=== PATIENT | female | born 1935 | race Caucasian/White ===

== ENCOUNTER → 2016-06-03 | Outpatient (REF) | payer OTHER ==
[~2016-06-03] MED LIST: AMLO5TAB2 PO; BENA25CA2 PO; CALALOT TOP; CALC600T10 PO; FERR325T PO; HYDR25OI TOP; LASI20TA PO; LOSA100T37 PO; NEUR600T PO; OMEP40CA2 PO; OXYC1TAB16 PO; SYNT50TA PO; VITMTA PO
[2016-06-03 12:08] LABS: MEAN CORPUSCULAR HEMOGLOBIN 26.4 pg (27.0-33.0); MEAN CORPUSCULAR HGB CONC 31.1 g/dl (32.0-36.5); MEAN CORPUSCULAR VOLUME 85.1 fl (80.0-96.0); RED CELL DISTRIBUTION WIDTH 20.7 % (11.5-14.5); WHITE BLOOD COUNT 6.5 K/mm3 (4.0-10.0)
[2016-06-03 13:09] LABS: ALBUMIN 3.6 GM/DL (3.2-5.2); ALBUMIN/GLOBULIN RATIO 1.09 (1.00-1.93); BILIRUBIN,TOTAL 0.6 MG/DL (0.2-1.0); CALCIUM LEVEL 8.7 MG/DL (8.8-10.2); CREATININE FOR GFR 1.54 MG/DL (0.55-1.02); GLOMERULAR FILTRATION RATE 34.6 (>39); POTASSIUM SERUM 4.6 MEQ/L (3.5-5.1); TOTAL PROTEIN 6.9 GM/DL (6.4-8.2)
== END ==
LOC: M SFHCPLAZ 08:27
PROVIDERS: ATTEND Internal Medicine
DX: R22.2 Localized swelling, mass and lump, trunk (principal); I10 Essential (primary) hypertension; E03.9 Hypothyroidism, unspecified

== ENCOUNTER → 2016-07-14 | Outpatient (CLI) | payer OTHER ==
[~2016-07-14] VITALS: Ht 154.9 cm; Wt 81.2 kg
[~2016-07-14] MED LIST changes: +CARV6.25 PO; +FERR325T3 PO; +LIDOCAINE 2% INJ 100 MG/5 ML SDV (FOR ANES.) As Ordered ONE; +NS 1,000 ML IV SCH; +PROPOFOL 200 MG/20 ML VIAL As Ordered ONE; +SPIR25TA2 PO
--- NOTE | 2016-07-14 14:23 | ROOR ---
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 Procedure: Pre-Anesthesia Assessment: - The heart rate, respiratory rate, oxygen saturations, blood pressure, adequacy of pulmonary ventilation, and response to care were monitored throughout the procedure. The Endoscope was introduced through the mouth, and advanced to the second part of duodenum. The upper GI endoscopy was accomplished without difficulty. The patient tolerated the procedure well. Findings: The Z-line was regular and was found 29 cm from the incisors. The examined esophagus was normal. A large hiatal hernia was present. The entire examined stomach was normal. The examined duodenum was normal. Impression: - Z-line regular, 29 cm from the incisors. - Normal esophagus. - Moderate/Large hiatal hernia. (I do not see any camerons erosions on this exam) - Normal stomach. - Normal examined duodenum. - No specimens collected. Recommendation: - Continue present medications. - Use Prilosec (omeprazole) 40 mg daily indefinitely. - Observe patient's clinical course. Fidel Mendes MD Fidel MENDES MD 07/14/2016 2:23:24 PM This report has been signed electronically. Number of Addenda: 0 Note Initiated On: 07/14/2016 2:10 PM Estimated Blood Loss: Estimated blood loss: none.
[2016-07-14 14:50] VITALS: BP 163/83
== END ==
LOC: M OPP 12:57
PROVIDERS: ATTEND Internal Medicine Gastroenterology
DX: D50.9 Iron deficiency anemia, unspecified (principal); K44.9 Diaphragmatic hernia without obstruction or gangrene; I10 Essential (primary) hypertension; M81.0 Age-related osteoporosis without current pathological fracture; E03.9 Hypothyroidism, unspecified; Z97.2 Presence of dental prosthetic device (complete) (partial); Z79.899 Other long term (current) drug therapy; Z79.891 Long term (current) use of opiate analgesic

== ENCOUNTER → 2017-06-03 | Outpatient (REF) | payer OTHER ==
[2017-06-03 12:32] LABS: ALBUMIN 3.6 GM/DL (3.2-5.2); ALBUMIN/GLOBULIN RATIO 1.06 (1.00-1.93); ALKALINE PHOSPHATASE 83 U/L (45-117); ALT/SGPT 15 U/L (12-78); ANION GAP 4 MEQ/L (8-16); AST/SGOT 13 U/L (7-37); BILIRUBIN,TOTAL 0.7 MG/DL (0.2-1.0); BLOOD UREA NITROGEN 21 MG/DL (7-18); CALCIUM LEVEL 8.9 MG/DL (8.8-10.2); CARBON DIOXIDE LEVEL 34 MEQ/L (21-32); CHLORIDE LEVEL 104 MEQ/L (98-107); CHOLESTEROL LEVEL 266 MG/DL (<200); CREATININE FOR GFR 1.54 MG/DL (0.55-1.02); GLOMERULAR FILTRATION RATE 34.5 (>32); GLUCOSE, FASTING 94 MG/DL (83-110); HDL CHOLESTEROL 93 MG/DL (>40); LDL CHOLESTEROL 150.6 MG/DL (<100); NON-HDL-C 173 MG/DL; POTASSIUM SERUM 4.2 MEQ/L (3.5-5.1); SODIUM LEVEL 142 MEQ/L (136-145); TRIGLYCERIDES LEVEL 112 MG/DL (<150)
== END ==
LOC: M SFHCPLAZ 08:48
DX: I10 Essential (primary) hypertension (principal); E78.00 Pure hypercholesterolemia, unspecified; E03.9 Hypothyroidism, unspecified
CPT/HCPCS: 84443

== ENCOUNTER → 2017-12-31 | Outpatient (REF) | payer OTHER ==
[2017-12-31 13:02] LABS: CHOLESTEROL LEVEL 275 MG/DL (<200); HDL CHOLESTEROL 87 MG/DL (>40); LDL CHOLESTEROL 166.8 MG/DL (<100); NON-HDL-C 188 MG/DL; TRIGLYCERIDES LEVEL 106 MG/DL (<150)
== END ==
LOC: M SFHCPLAZ 09:18
DX: E78.00 Pure hypercholesterolemia, unspecified (principal)
CPT/HCPCS: 80061

== ENCOUNTER 2018-02-18 08:27 | Day surgery (SDC) | payer OTHER ==
[2018-02-18] MEDS: LR 1,000 ML IV (09:35)
[2018-02-18] MEDS ORDERED: MIDAZOLAM INJ 2 MG/2 ML VIAL (J2250) As Ordered (10:30)
[2018-02-18] MEDS ORDERED: PROPOFOL 200 MG/20 ML VIAL As Ordered (10:30)
[2018-02-18] MEDS ORDERED: fentaNYL 250 MCG/5 ML INJECTION (J3010) As Ordered (10:30)
[2018-02-18] MEDS ORDERED: LIDOCAINE 2% INJ 100 MG/5 ML SDV (FOR ANES.) As Ordered (10:30)
[2018-02-18] MEDS ORDERED: ROCURONIUM BROMIDE 50 MG/5 ML VIAL As Ordered (10:30)
[2018-02-18] MEDS ORDERED: LIDOCAINE W/EPINEPHRINE 1% 20ML VIAL As Ordered (10:55)
[2018-02-18] MEDS ORDERED: dexameTHASONE 4 MG/ML 1ML VIAL (J1100) As Ordered (11:30)
[2018-02-18] MEDS ORDERED: ePHEDrine SULFATE 25 MG/5 ML(5MG/ML) SYRINGE As Ordered ×2 (11:32→11:45)
[2018-02-18] MEDS ORDERED: ONDANSETRON 4MG/2ML VIAL (J2405) As Ordered (11:41)
[2018-02-18] MEDS ORDERED: GLYCOPYRROLATE INJ 0.2 MG/ML 2 ML VIAL As Ordered (11:42)
[2018-02-18] MEDS ORDERED: PHENYLephrine HCL 500 MCG/5 ML (100MCG/ML) SYRINGE (J2370) As Ordered (11:46)
[2018-02-18] MEDS ORDERED: BACITRACIN OINT 30GM As Ordered (11:47)
[2018-02-18] MEDS ORDERED: LR 1,000 ML IV ×2 (12:15→12:45)
[2018-02-18] MEDS ORDERED: METOCLOPRAMIDE INJ 10MG/2ML VIAL (J2765) IV (12:15)
[2018-02-18] MEDS ORDERED: ONDANSETRON 4MG/2ML VIAL (J2405) IV (12:15)
[2018-02-18] MEDS ORDERED: fentaNYL 100 MCG/2 ML INJECTION (J3010) IV (12:15)
[2018-02-18] MEDS ORDERED: PERCOCET 5MG/325MG TAB PO (12:15)
== END 2018-02-18 13:18 | disposition home or self-care (01) ==
LOC: M SDC 08:27
DX: C44.311 Basal cell carcinoma of skin of nose (principal); I12.9 Hypertensive chronic kidney disease with stage 1 through stage 4 chronic kidney disease, or unspecified chronic kidney disease; E03.9 Hypothyroidism, unspecified; K44.9 Diaphragmatic hernia without obstruction or gangrene; D64.9 Anemia, unspecified; N18.3 Chronic kidney disease, stage 3 (moderate); Z79.899 Other long term (current) drug therapy
CPT/HCPCS: 11641

== ENCOUNTER 2018-03-18 07:29 | Day surgery (SDC) | payer OTHER ==
[~2018-03-18 07:29] MED LIST changes: -AMLO5TAB2 PO; -BENA25CA2 PO; -CALALOT TOP; -CALC600T10 PO; -CARV6.25 PO; -FERR325T PO; -FERR325T3 PO; -HYDR25OI TOP; -LASI20TA PO; -LIDOCAINE 2% INJ 100 MG/5 ML SDV (FOR ANES.) As Ordered ONE; -LOSA100T37 PO; +MIDAZOLAM INJ 2 MG/2 ML VIAL (J2250) As Ordered; -NEUR600T PO; -NS 1,000 ML IV SCH; -OMEP40CA2 PO; -OXYC1TAB16 PO; -PROPOFOL 200 MG/20 ML VIAL As Ordered ONE; -SPIR25TA2 PO; -SYNT50TA PO; -VITMTA PO; +fentaNYL 100 MCG/2 ML INJECTION (J3010) As Ordered
[2018-03-18] MEDS: PROPARACAINE 0.5% OPHTH SOL 15ML OD (08:16)
[2018-03-18] MEDS: TROPICAMIDE 1% OPHTH SOLN 2ML OD (08:16)
[2018-03-18] MEDS: PHENYLEPHRINE 2.5% OPHTH SOL 2ML OD (08:16)
[2018-03-18] MEDS: OFLOXACIN 0.3 % (OCUFLOX) OPTH SOL 5ML OD (08:16)
[2018-03-18] MEDS: BALANCED SALT IRRIGATION SOLUTION 500ML BAG (FOR OR EYE MACHINE) As Ordered (09:34)
[2018-03-18] MEDS: MOXIFLOXACIN IN BSS 0.25MG/0.25ML INTRACAMERAL INJ (OR EYE ONLY)(J2280) As Ordered (09:34)
[2018-03-18] MEDS: LIDOCAINE 0.75%/EPINEPHRINE 0.025% IN BSS 1ML SYR INTRACAMERAL (OR ONLY) As Ordered (09:34)
[2018-03-18] MEDS: POVIDONE-IODINE 5% OPHTH PREP SOL 30ML As Ordered (09:34)
[2018-03-18] MEDS: DUOVISC (0.50ML VISCOAT/0.55ML PROVISC) OPHTH KIT As Ordered (09:34)
[2018-03-18] MEDS ORDERED: ONDANSETRON 4MG/2ML VIAL (J2405) IV (10:00)
[2018-03-18] MEDS ORDERED: ACETAMINOPHEN TAB 650MG DOSE (2X325MG) PO (10:00)
== END 2018-03-18 10:15 | disposition home or self-care (01) ==
LOC: M SDC 07:29
DX: H25.11 Age-related nuclear cataract, right eye (principal); I10 Essential (primary) hypertension; E78.5 Hyperlipidemia, unspecified; E03.9 Hypothyroidism, unspecified; N18.3 Chronic kidney disease, stage 3 (moderate); Z79.899 Other long term (current) drug therapy
CPT/HCPCS: 66984

== ENCOUNTER 2018-03-25 08:29 | Day surgery (SDC) | payer OTHER ==
[2018-03-25] MEDS: PROPARACAINE 0.5% OPHTH SOL 15ML OS (09:43)
[2018-03-25] MEDS: TROPICAMIDE 1% OPHTH SOLN 2ML OS (09:43)
[2018-03-25] MEDS: OFLOXACIN 0.3 % (OCUFLOX) OPTH SOL 5ML OS (09:44)
[2018-03-25] MEDS: PHENYLEPHRINE 2.5% OPHTH SOL 2ML OS (09:44)
[2018-03-25] MEDS: POVIDONE-IODINE 5% OPHTH PREP SOL 30ML As Ordered (10:31)
[2018-03-25] MEDS: DUOVISC (0.50ML VISCOAT/0.55ML PROVISC) OPHTH KIT As Ordered (10:36)
[2018-03-25] MEDS: CEFUROXIME 1MG/0.1ML INTRACAMERAL INJ As Ordered (10:36)
[2018-03-25] MEDS: LIDOCAINE 0.75%/EPINEPHRINE 0.025% IN BSS 1ML SYR INTRACAMERAL (OR ONLY) As Ordered (10:36)
[2018-03-25] MEDS: BALANCED SALT IRRIGATION SOLUTION 500ML BAG (FOR OR EYE MACHINE) As Ordered (10:36)
== END 2018-03-25 11:15 | disposition home or self-care (01) ==
LOC: M SDC 08:29
DX: H25.12 Age-related nuclear cataract, left eye (principal); I10 Essential (primary) hypertension; E78.5 Hyperlipidemia, unspecified; E03.9 Hypothyroidism, unspecified; K21.9 Gastro-esophageal reflux disease without esophagitis; K44.9 Diaphragmatic hernia without obstruction or gangrene; N18.3 Chronic kidney disease, stage 3 (moderate); Z79.899 Other long term (current) drug therapy
CPT/HCPCS: 66984

== ENCOUNTER → 2018-04-08 | Outpatient (REF) | payer OTHER | LOC: M LAB REF 15:50 | DX: L56.8 Other specified acute skin changes due to ultraviolet radiation (principal) | CPT/HCPCS: 88305 ==

== ENCOUNTER → 2018-07-06 | Outpatient (REF) | payer MEDICARE ==
[~2018-07-06] MED LIST changes: +AMLO5TAB6 PO; +BENA25CA2 PO; +BIOT2500 PO; +CALALOT4 TOP; +CALC600T31 PO; +CARV12.5 PO; +CARV6.25 PO; +FERR1TAB8 PO; +FERR325T3 PO; +HYDR25OI TOP; +LASI20TA3 PO; +LASI40TA9 PO; +LOSA100T5 PO; +LOSA50TA88 PO; -MIDAZOLAM INJ 2 MG/2 ML VIAL (J2250) As Ordered; +NEUR600T PO; +OMEP40CA2 PO; +OXYC10TA3 PO; +OXYC1TAB23 PO; +ROCA0.25 PO; +SPIR-10 PO; +SYNT50TA PO; +VITMTA PO; -fentaNYL 100 MCG/2 ML INJECTION (J3010) As Ordered
[2018-07-06 11:29] LABS: CHOLESTEROL RISK RATIO 3.122 (<5); THYROID STIMULATING HORMONE 3.62 uIU/ML (0.358-3.740)
== END ==
LOC: M SFHCPLAZ 08:45
PROVIDERS: ATTEND Internal Medicine
DX: E78.00 Pure hypercholesterolemia, unspecified (principal); E03.9 Hypothyroidism, unspecified

== ENCOUNTER → 2019-01-07 | Outpatient (REF) | payer MEDICARE ==
[2019-01-07 12:52] LABS: CHOLESTEROL RISK RATIO 2.699 (<5)
== END ==
LOC: M SFHCPLAZ 08:46
PROVIDERS: ATTEND Internal Medicine
DX: E78.00 Pure hypercholesterolemia, unspecified (principal)

== ENCOUNTER → 2019-07-13 | Outpatient (CLI) | payer MEDICARE ==
[~2019-07-13] MED LIST changes: -OMEP40CA2 PO; +OMEP40CA97 PO
[2019-07-13 12:16] LABS: CHOLESTEROL RISK RATIO 2.852 (<5); THYROID STIMULATING HORMONE 2.26 uIU/ML (0.358-3.740)
== END ==
LOC: M PLALAB 09:17
PROVIDERS: ATTEND Internal Medicine
DX: E03.9 Hypothyroidism, unspecified (principal); E78.00 Pure hypercholesterolemia, unspecified

== ENCOUNTER → 2020-01-31 | Outpatient (CLI) | payer MEDICARE ==
[~2020-01-31] MED LIST changes: +AMLO1TAB24 PO; -AMLO5TAB6 PO
[2020-01-31 13:50] LABS: ALBUMIN 3.7 GM/DL (3.2-5.2); BILIRUBIN,TOTAL 0.7 MG/DL (0.2-1.0); CALCIUM LEVEL 9.1 MG/DL (8.8-10.2); CHOLESTEROL RISK RATIO 3.277 (<5); CREATININE FOR GFR 1.65 MG/DL (0.55-1.30); GLOMERULAR FILTRATION RATE 31.7 (>32); POTASSIUM SERUM 4.2 MEQ/L (3.5-5.1); TOTAL PROTEIN 6.8 GM/DL (6.4-8.2)
== END ==
LOC: M PLALAB 10:00
PROVIDERS: ATTEND Internal Medicine
DX: I12.9 Hypertensive chronic kidney disease with stage 1 through stage 4 chronic kidney disease, or unspecified chronic kidney disease (principal); E78.00 Pure hypercholesterolemia, unspecified

== ENCOUNTER → 2020-07-19 | Outpatient (REF) | payer MEDICARE ==
[2020-07-19 14:31] LABS: CHOLESTEROL RISK RATIO 2.459 (<5); THYROID STIMULATING HORMONE 2.56 uIU/ML (0.358-3.740)
== END ==
LOC: M PLALAB 10:31
PROVIDERS: ATTEND Internal Medicine
DX: Z11.59 Encounter for screening for other viral diseases (principal); E78.00 Pure hypercholesterolemia, unspecified; E03.9 Hypothyroidism, unspecified; Z79.899 Other long term (current) drug therapy
CPT/HCPCS: 36415; 80061; 84443; G0472

== ENCOUNTER → 2020-09-25 | Outpatient (REF) | payer MEDICARE ==
[2020-09-26 10:57] LABS: APPEARANCE, URINE CLEAR (CLEAR); BACTERIA, URINE AUTO NEGATIVE (NEGATIVE); BILIRUBIN, URINE AUTO NEGATIVE (NEGATIVE); BLOOD, URINE BLOOD NEGATIVE (NEGATIVE); CALCIUM OXALATE CRYSTALS SMALL; COLOR, URINE YELLOW (YELLOW); GLUCOSE, URINE (UA) AUTO NEGATIVE (NEGATIVE); KETONE, URINE AUTO NEGATIVE (NEGATIVE); LEUKOCYTE ESTERASE, URINE AUTO NEGATIVE (NEGATIVE); MUCUS, URINE SMALL (NEGATIVE); NITRITE, URINE AUTO NEGATIVE (NEGATIVE); PROTEIN, URINE AUTO NEGATIVE (NEGATIVE); RBC, URINE AUTO 8 /HPF (0-3); SPECIFIC GRAVITY URINE AUTO 1.017 (1.002-1.035); SQUAMOUS EPITHELIAL CELL UR AU 1 /HPF (0-6); UROBILINOGEN, URINE AUTO 0.2 mg/dL (0.0-2.0); WBC, URINE AUTO 1 /HPF (0-3)
== END ==
LOC: M SFHCPLAZ 10:02
PROVIDERS: ATTEND Internal Medicine
DX: R10.9 Unspecified abdominal pain (principal)

== ENCOUNTER → 2020-10-08 | Outpatient (CLI) | payer MEDICARE ==
--- NOTE | 2020-10-08 13:38 | REP ---
INDICATION: NEPHROLETHIASIS, AND LEFT FLANK PAIN COMPARISON: 03/19/2016 TECHNIQUE: Real time bryant scale ultrasound examination using curved array transducer. FINDINGS: Bilateral kidneys are normal in reniform shape and demonstrate increased central sinus fat suggesting age-related medical renal disease. No hydronephrosis, nephrolithiasis, cystic or renal mass lesion appreciated. Right kidney measures 7.9 x 3.4 x 3.7 cm. Left kidney measures 10.3 x 3.9 x 4.1 cm. The bladder is grossly unremarkable. IMPRESSION: 1. Mild asymmetric decreased size to the right kidney possibly atrophic. 2. No acute renal disease otherwise noted. <Electronically signed by Gunnar Ahmadi > 10/08/20 [id number]
== END ==
LOC: M RAD 12:28
PROVIDERS: ATTEND Internal Medicine
DX: N20.0 Calculus of kidney (principal)

== ENCOUNTER → 2021-03-21 | Outpatient (CLI) | payer MEDICARE ==
[~2021-03-21] MED LIST changes: +OMEP40CA4 PO; -OMEP40CA97 PO
[2021-03-21 13:44] LABS: CHOLESTEROL RISK RATIO 2.465 (<5)
== END ==
LOC: M PLALAB 10:22
PROVIDERS: ATTEND Internal Medicine
DX: E78.00 Pure hypercholesterolemia, unspecified (principal)

== ENCOUNTER → 2021-04-12 | Outpatient (CLI) | payer MEDICARE ==
--- NOTE | 2021-04-12 11:34 | REPVR ---
PROCEDURE INFORMATION: Exam: MR Lumbar Spine Without Contrast Exam date and time: 04/12/2021 9:58 AM Age: 86 years old Clinical indication: Abnormal findings; Abnormal xray or scan of thoracolumbar spine; Patient HX: Mass on CT scan; Additional info: Lumbar epidural mass TECHNIQUE: Imaging protocol: Multiplanar magnetic resonance images of the lumbar spine without intravenous contrast. COMPARISON: MRI-LS SPINE W/O FOLL WITH CON 11/23/2015 9:02 AM FINDINGS: Vertebrae: Again noted is a large mass along the right lateral aspect of the L1 vertebral body, originating in the region of the right neural foramina. The mass measures approximately 4.8 x 4.0 x 3.4 cm, similar to the prior exam. The right extraforaminal and paraspinous component of the mass is causing marked compression of the right psoas muscle. The mass is causing erosion of the posterior right L1 vertebral body and the right pedicle. There is expansion and effacement/obstruction of the right neural foramina. Extension into the right subarticular recess at L1-L2 is present. Given the location of the mass a nerve sheath tumor is possible. No acute compression fracture is seen. An incidental hemangioma is present within the mid L1 vertebral body. There is 6 mm of anterolisthesis of L4 on L5 due to severe facet arthropathy. Mild bone marrow edema is present within the right L5 pedicle and superior right L5 facet, likely degenerative. A developing stress reaction or stress fracture is less likely. Spinal cord: The conus medullaris terminates at the superior L1 level. There is no evidence of arachnoiditis or cauda equina compression. L1-L2: A large right subarticular, foraminal, and extraforaminal mass is present. See discussion above. Additionally, there is mild diffuse circumferential disc bulging, moderate facet arthropathy, and thickening of the ligamentum flavum. There is complete effacement of the right subarticular recess and right neural foramina with tumor. Mild spinal canal stenosis is also present. There is no significant left neural foraminal narrowing. L2-L3: There is mild diffuse circumferential disc bulging with a superimposed shallow right foraminal and extraforaminal disc protrusion. Moderate facet arthropathy and thickening of the ligamentum flavum is also present. This is causing mild spinal canal stenosis, mild narrowing of the right subarticular recess, mild right neural foraminal narrowing, and minimal left neural foraminal narrowing. L3-L4: There is severe disc space narrowing, moderate diffuse circumferential disc bulging, and a superimposed small left paracentral disc protrusion. Left paracentral disc material is migrating caudally roughly 7 mm from the level of the disc. Mild facet arthropathy and thickening of the ligamentum flavum is also present. This is causing mild spinal canal stenosis, mild narrowing of the left subarticular recess, mild left neural foraminal narrowing, moderate narrowing of the right subarticular recess, and moderate right neural foraminal narrowing. L4-L5: There is marked diffuse circumferential disc bulging, severe facet arthropathy, and thickening of the ligamentum flavum. This is causing moderate/severe spinal canal stenosis, severe narrowing of the subarticular recesses, moderate right neural foraminal narrowing, and moderate/severe left neural foraminal narrowing. The findings have increased/progressed since the previous exam. L5-S1: There is mild diffuse circumferential disc bulging and severe facet arthropathy. This is causing mild left and minimal right neural foraminal narrowing. There is no significant spinal canal stenosis. Soft tissues: Subcutaneous edema is present in the lower back. Gallbladder and bile ducts: Several large stones are noted within the gallbladder. IMPRESSION: 1. Stable 4.8 cm mass entered in the right L1-L2 neural foramina and extraforaminal region. 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 2. Degenerative changes of the lumbar spine as discussed above. Findings have progressed at the L4-L5 level. There is now moderate/severe spinal canal stenosis. Electronically signed by: Good Gonzalez On 04/12/2021 11:33:44 AM
== END ==
LOC: M PLARAD 09:51
PROVIDERS: ATTEND Internal Medicine
DX: R22.2 Localized swelling, mass and lump, trunk (principal); M43.06 Spondylolysis, lumbar region; M51.26 Other intervertebral disc displacement, lumbar region; M48.061 Spinal stenosis, lumbar region without neurogenic claudication; M43.07 Spondylolysis, lumbosacral region; M51.27 Other intervertebral disc displacement, lumbosacral region

== ENCOUNTER → 2021-08-29 | Outpatient (CLI) | payer MEDICARE ==
[~2021-08-29] MED LIST changes: +LOSA50TA28 PO; -LOSA50TA88 PO
[2021-08-29 16:36] LABS: CHOLESTEROL LEVEL 221 MG/DL (<200); CHOLESTEROL RISK RATIO 2.188 (<5); HDL CHOLESTEROL 101 MG/DL (>40); LDL CHOLESTEROL 102 MG/DL (<100); NON-HDL-C 120 MG/DL; TRIGLYCERIDES LEVEL 92 MG/DL (<150)
[2021-09-02 15:05] LABS: VITAMIN B12 LEVEL 1164 PG/ML
[2021-09-02 15:06] LABS: FOLATE > 24.0 NG/ML
== END ==
LOC: M PLALAB 10:28
PROVIDERS: ATTEND Internal Medicine
DX: E03.9 Hypothyroidism, unspecified (principal); E78.00 Pure hypercholesterolemia, unspecified

== ENCOUNTER → 2022-10-09 | Outpatient (CLI) | payer MEDICARE ==
[2022-10-09 15:48] LABS: HEMATOCRIT 39.6 % (36.0-47.0); HEMOGLOBIN 12.7 g/dl (12.0-15.5); MEAN CORPUSCULAR HGB CONC 32.1 g/dl (32.0-36.5); MEAN CORPUSCULAR VOLUME 96.6 fl (80.0-96.0); PLATELET COUNT, AUTOMATED 179 10^3/uL (150-450); WHITE BLOOD COUNT 6.8 10^3/uL (4.0-10.0)
[2022-10-09 15:54] LABS: ALBUMIN 3.7 G/DL (3.2-5.2); ALKALINE PHOSPHATASE 73 U/L (46-116); ALT/SGPT 14 U/L (7.0-40); AST/SGOT < 8 U/L (<34); BLOOD UREA NITROGEN 25 MG/DL (9-23); C REACTIVE PROTEIN QUANTITATIV < 0.40 MG/DL (<1.0); CALCIUM LEVEL 8.8 MG/DL (8.3-10.6); CARBON DIOXIDE LEVEL 31 MMOL/L (20-31); CHLORIDE LEVEL 105 MMOL/L (98-107); CHOLESTEROL LEVEL 194 MG/DL (<200); CHOLESTEROL RISK RATIO 2.35 (<5); CREATININE FOR GFR 1.76 MG/DL (0.55-1.30); GLOMERULAR FILTRATION RATE 29.2 (>32); GLUCOSE, FASTING 92 MG/DL (74-106); HDL CHOLESTEROL 82.3 MG/DL (>40); LDL CHOLESTEROL 89.9 MG/DL (<100); NON-HDL-C 111.7 MG/DL; POTASSIUM SERUM 4.1 MMOL/L (3.5-5.1); SODIUM LEVEL 140 MMOL/L (136-145); TOTAL PROTEIN 6.4 G/DL (5.7-8.2); TRIGLYCERIDES LEVEL 109 MG/DL (<150)
[2022-10-09 15:55] LABS: THYROID STIMULATING HORMONE 2.035 uIU/ML (0.55-4.78)
[2022-10-09 15:56] LABS: TOTAL 25(OH) VITAMIN D 71.3 NG/ML (20.0-100.0)
[2022-10-09 15:57] LABS: FREE T4 1.17 NG/DL (0.89-1.76)
[2022-10-09 15:59] LABS: VITAMIN B12 LEVEL 1204 PG/ML (211-911)
[2022-10-09 16:06] LABS: HEMOGLOBIN A1c 5.6 % (4.0-6.0)
[2022-10-09 16:14] LABS: CREATININE, URINE 53.2 MG/DL
[2022-10-09 16:15] LABS: MALB URINE SIEMENS < 3.0 MG/L; MAU/CREAT RATIO 5.6 MCG/MG (0.0-30.0)
== END ==
LOC: M PLALAB 09:04
PROVIDERS: ATTEND Internal Medicine Hematology
DX: I12.9 Hypertensive chronic kidney disease with stage 1 through stage 4 chronic kidney disease, or unspecified chronic kidney disease (principal); Z79.899 Other long term (current) drug therapy

== ENCOUNTER → 2023-01-14 | Outpatient (REF) | payer MEDICARE ==
[2023-01-14 18:36] LABS: HEMATOCRIT 41.2 % (36.0-47.0); HEMOGLOBIN 13.2 g/dl (12.0-15.5); MEAN CORPUSCULAR HEMOGLOBIN 30.6 pg (27.0-33.0); MEAN CORPUSCULAR VOLUME 95.6 fl (80.0-96.0); PLATELET COUNT, AUTOMATED 200 10^3/uL (150-450); RED BLOOD COUNT 4.31 10^6/uL (4.00-5.40); WHITE BLOOD COUNT 7.9 10^3/uL (4.0-10.0)
[2023-01-14 18:54] LABS: C REACTIVE PROTEIN QUANTITATIV < 0.40 MG/DL (<1.0)
[2023-01-14 18:58] LABS: ALBUMIN 3.8 G/DL (3.2-5.2); ALKALINE PHOSPHATASE 80 U/L (46-116); ALT/SGPT 13 U/L (7.0-40); AST/SGOT 10 U/L (<34); BILIRUBIN,TOTAL 0.7 MG/DL (0.3-1.2); BLOOD UREA NITROGEN 21 MG/DL (9-23); CALCIUM LEVEL 9.6 MG/DL (8.3-10.6); CARBON DIOXIDE LEVEL 32 MMOL/L (20-31); CHLORIDE LEVEL 101 MMOL/L (98-107); CHOLESTEROL LEVEL 228 MG/DL (<200); CHOLESTEROL RISK RATIO 2.52 (<5); CREATININE FOR GFR 1.62 MG/DL (0.55-1.30); FREE T4 1.21 NG/DL (0.89-1.76); GLOMERULAR FILTRATION RATE 32.1 (>32); GLUCOSE, FASTING 76 MG/DL (74-106); HDL CHOLESTEROL 90.2 MG/DL (>40); LDL CHOLESTEROL 113.4 MG/DL (<100); NON-HDL-C 137.8 MG/DL; SODIUM LEVEL 140 MMOL/L (136-145); THYROID STIMULATING HORMONE 2.346 uIU/ML (0.55-4.78); TOTAL 25(OH) VITAMIN D 62.8 NG/ML (20.0-100.0); TOTAL PROTEIN 6.9 G/DL (5.7-8.2); TRIGLYCERIDES LEVEL 122 MG/DL (<150); VITAMIN B12 LEVEL 1089 PG/ML (211-911)
[2023-01-14 19:53] LABS: HEMOGLOBIN A1c 5.4 % (4.0-6.0)
== END ==
LOC: M SFHCPLAZ 18:05
PROVIDERS: ATTEND Internal Medicine Hematology
DX: E03.9 Hypothyroidism, unspecified (principal); Z79.899 Other long term (current) drug therapy

== ENCOUNTER → 2023-01-16 | Outpatient (CLI) | payer MEDICARE | LOC: M CARPUL 09:59 | PROVIDERS: ATTEND Internal Medicine Hematology | DX: I50.9 Heart failure, unspecified (principal) ==

== ENCOUNTER → 2023-05-11 | Outpatient (REF) | payer MEDICARE ==
[2023-05-11 18:31] LABS: HEMATOCRIT 38.4 % (36.0-47.0); HEMOGLOBIN 12.4 g/dl (12.0-15.5); MEAN CORPUSCULAR HEMOGLOBIN 30.9 pg (27.0-33.0); MEAN CORPUSCULAR HGB CONC 32.3 g/dl (32.0-36.5); MEAN CORPUSCULAR VOLUME 95.8 fl (80.0-96.0); PLATELET COUNT, AUTOMATED 222 10^3/uL (150-450); RED BLOOD COUNT 4.01 10^6/uL (4.00-5.40); WHITE BLOOD COUNT 7.1 10^3/uL (4.0-10.0)
[2023-05-11 18:47] LABS: C REACTIVE PROTEIN QUANTITATIV < 0.40 MG/DL (<1.0); THYROID STIMULATING HORMONE 3.222 uIU/ML (0.55-4.78)
[2023-05-11 18:48] LABS: TOTAL 25(OH) VITAMIN D 46.9 NG/ML (20.0-100.0); VITAMIN B12 LEVEL 839 PG/ML (211-911)
[2023-05-11 18:49] LABS: FREE T4 1.21 NG/DL (0.89-1.76)
[2023-05-11 18:51] LABS: ALBUMIN 3.9 G/DL (3.2-5.2); ALKALINE PHOSPHATASE 64 U/L (46-116); ALT/SGPT 13 U/L (7.0-40); AST/SGOT 15 U/L (<34); BILIRUBIN,TOTAL 0.6 MG/DL (0.3-1.2); BLOOD UREA NITROGEN 36 MG/DL (9-23); CALCIUM LEVEL 9.3 MG/DL (8.3-10.6); CARBON DIOXIDE LEVEL 29 MMOL/L (20-31); CHLORIDE LEVEL 100 MMOL/L (98-107); CHOLESTEROL LEVEL 218 MG/DL (<200); CHOLESTEROL RISK RATIO 2.28 (<5); CREATININE FOR GFR 1.95 MG/DL (0.55-1.30); GLOMERULAR FILTRATION RATE 25.9 (>32); GLUCOSE, FASTING 99 MG/DL (74-106); HDL CHOLESTEROL 95.6 MG/DL (>40); LDL CHOLESTEROL 104.6 MG/DL (<100); NON-HDL-C 122.4 MG/DL; POTASSIUM SERUM 4.2 MMOL/L (3.5-5.1); SODIUM LEVEL 138 MMOL/L (136-145); TOTAL PROTEIN 6.6 G/DL (5.7-8.2); TRIGLYCERIDES LEVEL 89 MG/DL (<150)
[2023-05-11 18:59] LABS: HEMOGLOBIN A1c 5.4 % (4.0-6.0)
== END ==
LOC: M LAB REF 16:55
PROVIDERS: ATTEND Internal Medicine Hematology
DX: N18.9 Chronic kidney disease, unspecified (principal); Z79.899 Other long term (current) drug therapy

== ENCOUNTER → 2023-05-22 | Outpatient (CLI) | payer MEDICARE ==
[2023-05-22 13:53] LABS: APPEARANCE, URINE HAZY (CLEAR); BACTERIA, URINE AUTO 1+ (NEGATIVE); BILIRUBIN, URINE AUTO NEGATIVE (NEGATIVE); BLOOD, URINE BLOOD NEGATIVE (NEGATIVE); COLOR, URINE YELLOW (YELLOW); GLUCOSE, URINE (UA) AUTO NEGATIVE (NEGATIVE); KETONE, URINE AUTO NEGATIVE (NEGATIVE); LEUKOCYTE ESTERASE, URINE AUTO 2+ (NEGATIVE); MUCUS, URINE SMALL (NEGATIVE); NITRITE, URINE AUTO NEGATIVE (NEGATIVE); PROTEIN, URINE AUTO NEGATIVE (NEGATIVE); RBC, URINE AUTO 2 /HPF (0-3); SPECIFIC GRAVITY URINE AUTO 1.017 (1.002-1.035); SQUAMOUS EPITHELIAL CELL UR AU 18 /HPF (0-6); WBC, URINE AUTO 4 /HPF (0-3)
[2023-05-22 14:07] LABS: ALBUMIN 3.8 G/DL (3.2-5.2); CALCIUM LEVEL 9.3 MG/DL (8.3-10.6); CHOLESTEROL RISK RATIO 2.42 (<5); CREATININE FOR GFR 1.73 MG/DL (0.55-1.30); GLOMERULAR FILTRATION RATE 29.7 (>32); HDL CHOLESTEROL 89.4 MG/DL (>40); LDL CHOLESTEROL 106.4 MG/DL (<100); NON-HDL-C 127.6 MG/DL; PHOSPHORUS LEVEL 3.5 MG/DL (2.4-5.1)
== END ==
LOC: M PLALAB 09:15
PROVIDERS: ATTEND Internal Medicine Hematology
DX: I10 Essential (primary) hypertension (principal)

== ENCOUNTER → 2023-07-03 | Outpatient (CLI) | payer MEDICARE ==
[2023-07-03 13:45] LABS: ALBUMIN 3.6 G/DL (3.2-5.2); CALCIUM LEVEL 9.1 MG/DL (8.3-10.6); CREATININE FOR GFR 1.87 MG/DL (0.55-1.30); GLOMERULAR FILTRATION RATE 27.2 (>32); POTASSIUM SERUM 4.4 MMOL/L (3.5-5.1)
== END ==
LOC: M PLALAB 09:15
PROVIDERS: ATTEND Internal Medicine Hematology
DX: N18.9 Chronic kidney disease, unspecified (principal)

== ENCOUNTER → 2023-11-04 | Outpatient (CLI) | payer MEDICARE ==
[2023-11-04 15:43] LABS: BASO # 0.1 10^3/uL (0.0-0.2); BASO % 0.9 % (0.0-1.0); EOS # 0.8 10^3/uL (0.0-0.5); EOS % 10.8 % (0.0-3.0); HEMATOCRIT 36.5 % (36.0-47.0); HEMOGLOBIN 11.7 g/dl (12.0-15.5); LYMPH # 1.1 10^3/uL (1.5-5.0); LYMPH % 15.4 % (24.0-44.0); MEAN CORPUSCULAR HEMOGLOBIN 30.2 pg (27.0-33.0); MEAN CORPUSCULAR HGB CONC 32.1 g/dl (32.0-36.5); MEAN CORPUSCULAR VOLUME 94.1 fl (80.0-96.0); MONO # 0.7 10^3/uL (0.0-0.8); MONO % 9.6 % (2.0-8.0); NEUTROPHILS # 4.7 10^3/uL (1.5-8.5); PLATELET COUNT, AUTOMATED 193 10^3/uL (150-450); RED BLOOD COUNT 3.88 10^6/uL (4.00-5.40); WHITE BLOOD COUNT 7.4 10^3/uL (4.0-10.0)
[2023-11-04 16:09] LABS: ALBUMIN 3.7 G/DL (3.2-5.2); BILIRUBIN,TOTAL 0.7 MG/DL (0.3-1.2); CALCIUM LEVEL 9.4 MG/DL (8.3-10.6); CHOLESTEROL RISK RATIO 2.47 (<5); CREATININE FOR GFR 1.95 MG/DL (0.55-1.30); GLOMERULAR FILTRATION RATE 25.9 (>32); HDL CHOLESTEROL 79.7 MG/DL (>40); LDL CHOLESTEROL 100.9 MG/DL (<100); NON-HDL-C 117.3 MG/DL; POTASSIUM SERUM 4.2 MMOL/L (3.5-5.1); TOTAL PROTEIN 6.4 G/DL (5.7-8.2)
[2023-11-04 16:12] LABS: THYROID STIMULATING HORMONE 2.77 uIU/ML (0.55-4.78)
== END ==
LOC: M PLALAB 14:02
PROVIDERS: ATTEND Internal Medicine Hematology
DX: N18.9 Chronic kidney disease, unspecified (principal); E03.9 Hypothyroidism, unspecified; E78.00 Pure hypercholesterolemia, unspecified

== ENCOUNTER → 2024-06-09 | Outpatient (CLI) | payer MEDICARE ==
[2024-06-09 14:10] LABS: BASO # 0.1 10^3/uL (0.0-0.2); EOS # 0.3 10^3/uL (0.0-0.5); EOS % 4.5 % (0.0-3.0); HEMATOCRIT 39.1 % (36.0-47.0); HEMOGLOBIN 12.6 g/dl (12.0-15.5); LYMPH # 0.7 10^3/uL (1.5-5.0); LYMPH % 10.6 % (24.0-44.0); MEAN CORPUSCULAR HGB CONC 32.2 g/dl (32.0-36.5); MEAN CORPUSCULAR VOLUME 96.3 fl (80.0-96.0); MONO # 0.8 10^3/uL (0.0-0.8); MONO % 11.5 % (2.0-8.0); NEUTROPHILS # 4.8 10^3/uL (1.5-8.5); NEUTROPHILS % 72.1 % (36.0-66.0); PLATELET COUNT, AUTOMATED 181 10^3/uL (150-450); RED BLOOD COUNT 4.06 10^6/uL (4.00-5.40); WHITE BLOOD COUNT 6.7 10^3/uL (4.0-10.0)
[2024-06-09 14:15] LABS: ALBUMIN 3.8 G/DL (3.2-5.2); BILIRUBIN,TOTAL 0.8 MG/DL (0.3-1.2); CALCIUM LEVEL 9.6 MG/DL (8.3-10.6); CHOLESTEROL RISK RATIO 2.24 (<5); CREATININE FOR GFR 1.88 MG/DL (0.55-1.30); GLOMERULAR FILTRATION RATE 26.9 (>32); HDL CHOLESTEROL 93.8 MG/DL (>40); LDL CHOLESTEROL 100.4 MG/DL (<100); NON-HDL-C 117.2 MG/DL; POTASSIUM SERUM 4.1 MMOL/L (3.5-5.1); TOTAL PROTEIN 7.2 G/DL (5.7-8.2)
[2024-06-09 14:18] LABS: FREE T4 1.29 NG/DL (0.89-1.76); THYROID STIMULATING HORMONE 3.895 uIU/ML (0.55-4.78)
[2024-06-09 14:43] LABS: CREATININE, URINE 194.8 MG/DL; MAU/CREAT RATIO 2.5 MCG/MG (0.0-30.0)
== END ==
LOC: M PLALAB 09:24
PROVIDERS: ATTEND Student in an Organized Health Care Education/Training Program
DX: I12.9 Hypertensive chronic kidney disease with stage 1 through stage 4 chronic kidney disease, or unspecified chronic kidney disease (principal); E78.00 Pure hypercholesterolemia, unspecified; E03.9 Hypothyroidism, unspecified

== ENCOUNTER → 2024-06-09 | Outpatient (REF) | payer MEDICARE | LOC: M SFHCPLAZ 17:17 | PROVIDERS: ATTEND Student in an Organized Health Care Education/Training Program | DX: Z86.39 Personal history of other endocrine, nutritional and metabolic disease (principal) ==